=== PATIENT | male | born 1990 | race Caucasian/White ===

== ENCOUNTER 2018-04-20 16:21 | Emergency (ER) | payer SELFPAY ==
[~2018-04-20] VITALS: Ht 170.2 cm; Wt 70.0 kg
[2018-04-20] MEDS ORDERED: SODIUM CHLORIDE 0.9% 1,000 ML IV ONE (16:44)
[2018-04-20] MEDS ORDERED: LORAZEPAM 2MG/ML CPJ IV ONE (16:45)
[2018-04-20 16:54] VITALS: BP 127/85
== END 2018-04-20 17:12 | disposition left against medical advice (07) ==
LOC: ER 16:21
DX: F10.129 Alcohol abuse with intoxication, unspecified (principal); S00.83XA Contusion of other part of head, initial encounter; Y90.9 Presence of alcohol in blood, level not specified; W01.0XXA Fall on same level from slipping, tripping and stumbling without subsequent striking against object, initial encounter; Y93.89 Activity, other specified; Y92.488 Other paved roadways as the place of occurrence of the external cause
CPT/HCPCS: 99283; J7030

== ENCOUNTER 2018-10-09 18:32 | Emergency (ER) | payer MEDICAID ==
[~2018-10-09] VITALS: Ht 170.2 cm; Wt 75.0 kg
[2018-10-09 22:30] VITALS: BP 131/69
[2018-10-09] MEDS ORDERED: IBUPROFEN 600MG TABLET PO ONE (22:30)
== END 2018-10-09 23:45 | disposition home or self-care (01) ==
LOC: ER 18:32
DX: S82.891A Other fracture of right lower leg, initial encounter for closed fracture (principal); X58.XXXA Exposure to other specified factors, initial encounter; Y93.66 Activity, soccer; Y92.89 Other specified places as the place of occurrence of the external cause; Y99.8 Other external cause status
CPT/HCPCS: 29515; 73610; 99283

== ENCOUNTER 2021-02-24 14:15 | Emergency (ER) | payer MEDICAID ==
[~2021-02-24] VITALS: Ht 167.6 cm; Wt 66.0 kg
[2021-02-24 14:20] VITALS: BP 120/80
[2021-02-24 16:39] LABS: BASOPHILS % 0.6 % (0.0-2.0); EOSINOPHILS % 0.1 % (0.0-5.0); HEMATOCRIT. 41.8 % (42.0-52.0); HEMOGLOBIN. 14.8 g/dL (14.0-18.0); LYMPHOCYTES % 12.9 % (20.0-50.0); MEAN CORPUSCULAR VOLUME 84.4 fL (80.0-94.0); MEAN PLATELET VOLUME 7.7 fl (7.4-10.4); MONOCYTES % 5.4 % (2.0-8.0); PLATELET 251 x1000/uL (130-400); RED BLOOD CELL COUNT 4.95 mill/uL (4.7-6.1); RED CELL DISTRIBUTION WIDTH 13.3 % (11.6-14.6)
[2021-02-24 16:44] LABS: CHLORIDE 103 mEq/L (98-107)
== END 2021-02-24 17:44 | disposition home or self-care (01) ==
LOC: ER 14:15
DX: R25.2 Cramp and spasm (principal); Z98.890 Other specified postprocedural states; F10.21 Alcohol dependence, in remission
CPT/HCPCS: 36415; 80048; 85025; 99283